=== PATIENT | male | born 1960 | race Caucasian/White ===

== ENCOUNTER → 2020-04-13 | Emergency (ER) | payer SELFPAY ==
[~2020-04-13] MED LIST: FOLIC ACID 11 MG/TA1 PO; MAALOX EXTRA S150 ML PO; MULTIPLE VITAMI1 CAP PO; NICODERM C21 MG/PATC TOP; THIAMINE 1100 MG/TAB PO; TYLENOL #3 301 UDTAB PO
== END ==
LOC: COL.ER 15:49
DX: R06.00 Dyspnea, unspecified (principal); R05 Cough; R50.9 Fever, unspecified